=== PATIENT | male | born 2000 | race Two or more races ===

== ENCOUNTER 2020-12-05 10:10 | Emergency (ER) | payer MEDICAID ==
[~2020-12-05] VITALS: Ht 180.3 cm; Wt 59.0 kg
[2020-12-05 10:24] VITALS: BP 131/75
--- NOTE | 2020-12-05 10:25 | NUR ---
AT BEDSIDE FOR EVAL.
--- NOTE | 2020-12-05 10:45 | NUR ---
PT IS WHEELED TO RADIOLOGY FOR XRAY.
--- NOTE | 2020-12-05 11:11 | NUR ---
Patient discharged to home in stable condition. Written and verbal after care instructions given. Patient verbalizes understanding of instruction.
== END 2020-12-05 11:12 | disposition home or self-care (01) ==
LOC: ER 10:14
DX: S20.222A Contusion of left back wall of thorax, initial encounter (principal); S30.1XXA Contusion of abdominal wall, initial encounter; Y00.XXXA Assault by blunt object, initial encounter; Y93.89 Activity, other specified; Y92.89 Other specified places as the place of occurrence of the external cause; Y99.8 Other external cause status
CPT/HCPCS: 71045-TC; 72074-TC